=== PATIENT | female | born 1955 | race Caucasian/White ===

== ENCOUNTER 2022-03-22 12:47 | Day surgery (SDC) | payer BC ==
[2022-03-18 15:18] LABS: SARS-CoV-2 Antigen Rapid Res Negative (Negative)
[2022-03-22] MEDS ORDERED: TRYPAN BLUE 0.5 ML SYR OPTH ONE (13:09)
[2022-03-22] MEDS ORDERED: POVIDONE-IODINE 5% EYE DROPS ONE (13:09)
[2022-03-22] MEDS ORDERED: MOXIFLOXACIN HCL 10 DROPS/ML **OR USE OPTH ONE (13:10)
[2022-03-22] MEDS ORDERED: NA CHLORIDE 0.9% 500 ML ONE (13:12)
[2022-03-22] MEDS ORDERED: PHENYLEPHRINE 10% OPTH 5ML OPTH ONE (13:15)
[2022-03-22] MEDS ORDERED: LIDOCAINE HCL/PF 3.5% OPTH GEL ONE (13:21)
[2022-03-22] MEDS ORDERED: TETRACAINE HCL 0.5% 4ML OPTH ONE ×2 (13:27→13:32)
[2022-03-22] MEDS ORDERED: CYCLOPENTOLATE 1% OPTH 2 ML ONE (13:32)
[2022-03-22] MEDS ORDERED: DUOVISC 1 KIT OPTH ONE (13:38)
[2022-03-22] MEDS ORDERED: LIDOCAINE 1% MPF 2 ML AMPULE ONE (13:50)
[2022-03-22] MEDS: BALANCED SALT IRRIG PLAIN 500 ML IRR ONE ×2 (14:05→14:36)
[2022-03-22] MEDS: EPINEPHRINE/PF 1 MG/ML AMP ONE ×2 (14:06→14:36)
[2022-03-22] MEDS: DUOVISC 1 KIT OPTH ONE ×2 (14:07→14:36)
[2022-03-22] MEDS ORDERED: MIDAZOLAM HCL 2 MG/2 ML INJ ONE (14:20)
[2022-03-22] MEDS ORDERED: FENTANYL CITR 100 MCG/2 ML ONE (14:36)
[2022-03-22 16:05] VITALS: BP 125/86; TEMP 97.6; O2SAT 99
--- NOTE | 2022-03-22 17:11 | OP ---
Date of Procedure: 03/22/2022 Surgeon: Farhana Givens MD Anesthesiologist: Raudel Mackenzie CRNA and Stevie Santiago MD. 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 Operation Performed: Phacoemulsification with toric intraocular lens implant, right eye. Anesthesia: Per cataract surgery. Complications: None. Description Of Procedure: In day surgery, Akten gel was placed in the right eye In the operating room the patient was prepped and draped in the usual sterile fashion for ophthalmic surgery. A lid speculum was placed in the right eye. Two paracentesis sites were made superiorly and inferiorly in the limbal cornea. Preservative free lidocaine then Viscoat were placed in the anterior chamber. A keratome was used to enter the anterior chamber. A 360 degree capsulotomy was performed with utrata forceps. The lens was hydrodissected with BSS and rotated freely. The lens was removed with a stop and chop technique. 5.07 phaco CDE was used to remove the lens. Residual cortex was removed with the irrigation and aspiration. Provisc was placed in the capsular bag. A ZVO287, +20.0 at 73 degrees was placed in the capsular bag without complications. Irrigation and aspiration was used to remove residual viscoelastic. The paracentesis sites were hydrated with BSS. The wound and paracentesis sites were inspected and found to be watertight. Vigamox 0.07 cc was placed intracamerally at the end of the procedure. The eye was patched with a clear plastic shield. The patient was returned to day surgery in good condition. Comments: Discharge Instructions: Ms. Williamson is discharged to home in good condition. She is to follow up with Dr. Givens in the morning. MICHAEL/KIM Voice ID: [id number] Report ID: [id number] ANSELMO
== END 2022-03-22 15:45 | disposition home or self-care (01) ==
LOC: OR 12:47
PROVIDERS: ATTEND Ophthalmology Retina Specialist
PROC: 08RJ3JZ Replacement of Right Lens with Synthetic Substitute, Percutaneous Approach (ICD-10-PCS; principal; 2022-03-22 14:00)
DX: H25.13 Age-related nuclear cataract, bilateral (principal); H52.221 Regular astigmatism, right eye; H25.812 Combined forms of age-related cataract, left eye; E11.9 Type 2 diabetes mellitus without complications; Z20.822 Contact with and (suspected) exposure to COVID-19
CPT/HCPCS: 36415; 87811; 66984; J0171; J2250; J3010; J7040

== ENCOUNTER 2022-04-19 11:14 | Day surgery (SDC) | payer BC ==
[2022-04-16 15:48] LABS: SARS-CoV-2 Antigen Rapid Res Negative (Negative)
[2022-04-19] MEDS ORDERED: TETRACAINE HCL 0.5% 4ML OPTH ONE (11:58)
[2022-04-19] MEDS ORDERED: LIDOCAINE HCL/PF 3.5% OPTH GEL ONE (11:58)
[2022-04-19] MEDS ORDERED: NA CHLORIDE 0.9% 1,000 ML ONE (11:59)
[2022-04-19] MEDS: CYCLOPENTOLATE 1% OPTH 2 ML ONE ×3 (12:10→12:40)
[2022-04-19] MEDS: PHENYLEPHRINE 2.5% OPTH 2 ML ONE ×3 (12:10→12:40)
[2022-04-19] MEDS ORDERED: EPINEPHRINE/PF 1 MG/ML AMP ONE (13:16)
[2022-04-19] MEDS ORDERED: TOBRADEX 0.3-0.1% OPTH OINTMENT ONE (13:16)
[2022-04-19] MEDS ORDERED: BSS OPTHALMIC SOL 15 ML OPTH ONE (13:16)
[2022-04-19] MEDS ORDERED: BALANCED SALT IRRIG PLAIN 500 ML IRR ONE (13:17)
[2022-04-19] MEDS ORDERED: DUOVISC 1 KIT OPTH ONE ×2 (13:17→14:06)
[2022-04-19] MEDS ORDERED: LIDOCAINE 1% MPF 2 ML AMPULE ONE ×2 (13:18→14:37)
[2022-04-19] MEDS ORDERED: MIDAZOLAM HCL 2 MG/2 ML INJ ONE (13:27)
[2022-04-19] MEDS ORDERED: FENTANYL CITR 100 MCG/2 ML ONE (13:27)
[2022-04-19] MEDS ORDERED: POVIDONE-IODINE 5% EYE DROPS ONE (13:30)
[2022-04-19] MEDS ORDERED: MOXIFLOXACIN HCL 0.5% 3ML OPTH OPTH ONE (13:59)
[2022-04-19 15:44] VITALS: BP 138/81; TEMP 97.7; O2SAT 98
--- NOTE | 2022-04-20 01:47 | OP ---
Date of Procedure: 04/19/2022 Surgeon: Farhana Givens MD Diagnosis: Blurred vision due to DIU Toric contact lens. Procedure: Intraocular lens exchange, right eye. Anesthesia: Eleni Bustamante CRNA, monitored anesthesia care. Complications: None. Description Of Procedure: The patient was given actin gel in the eye in Day Surgery. She was then b rought into the operative room where the actin was irrigated out and the eye was prepped with alcohol as the patient is allergic to Betadine. Paracentesis sites were created superiorly and inferiorly. 1% preservative-free lidocaine was placed in the eye. This was followed by Viscoat. The eye was ma rked at 90 degree for a Toric lens. A 2.75 mm incision was made temporally. Viscoat was used on the 27-gauge needle to place Viscoat under the lens. The lens was visco dissected out with Viscoat and a flat instrument. The lens was then brought into the anterior chamber. The new lens was placed in the bag and the new lens was a GVN118+ 20.5. The old lens was bisected and removed from the anterior chamber. The new lens was aligned at 90 degrees. Irrigation and aspiration were used to remove vis coelastic. The incisions were sealed with BSS and found to be watertight. 0.07 cc of Vigamox was pl aced in the anterior chamber. Discharge Instructions: Ms. Williamson is discharged to home in good condition and is to follow up with Dr. Givens in the morning. MICHAEL/KIM Voice ID: [id number] Report ID: [id number]
== END 2022-04-19 15:30 | disposition home or self-care (01) ==
LOC: OR 11:14
PROVIDERS: ATTEND Ophthalmology Retina Specialist
PROC: 08RJ3JZ Replacement of Right Lens with Synthetic Substitute, Percutaneous Approach (ICD-10-PCS; 2022-04-19)
PROC: 08PJ3JZ Removal of Synthetic Substitute from Right Lens, Percutaneous Approach (ICD-10-PCS; principal; 2022-04-19 13:30)
DX: T85.29XA Other mechanical complication of intraocular lens, initial encounter (principal); H53.8 Other visual disturbances; H35.3132 Nonexudative age-related macular degeneration, bilateral, intermediate dry stage; E11.9 Type 2 diabetes mellitus without complications; H25.812 Combined forms of age-related cataract, left eye; Z96.1 Presence of intraocular lens; Z20.822 Contact with and (suspected) exposure to COVID-19
CPT/HCPCS: 36415; 87811; 66986; J0171; J2250; J3010; J7030

== ENCOUNTER 2022-06-21 12:02 | Day surgery (SDC) | payer BC ==
[2022-06-21] MEDS ORDERED: BSS OPTHALMIC SOL 15 ML OPTH ONE (12:25)
[2022-06-21] MEDS ORDERED: EPINEPHRINE/PF 1 MG/ML AMP ONE (12:26)
[2022-06-21] MEDS ORDERED: NA CHLORIDE 0.9% 1,000 ML ONE (12:36)
[2022-06-21] MEDS: BUPIVACAINE 0.25% PF 10 ML VIAL ONE ×3 (13:33→15:10)
[2022-06-21] MEDS: BALANCED SALT IRRIG PLAIN 500 ML IRR ONE ×4 (13:33→15:28)
[2022-06-21] MEDS: LIDOCAINE 2% MPF 5 ML VIAL ONE ×3 (13:33→15:10)
[2022-06-21] MEDS: DUOVISC 1 KIT OPTH ONE ×3 (13:34→15:33)
[2022-06-21] MEDS: MOXIFLOXACIN HCL 10 DROPS/ML **OR USE OPTH ONE ×3 (13:35→15:38)
[2022-06-21] MEDS: CYCLOPENTOLATE 1% OPTH 2 ML ONE ×3 (14:20→14:30)
[2022-06-21] MEDS: PHENYLEPHRINE 10% OPTH 5ML ONE ×3 (14:20→14:30)
[2022-06-21] MEDS ORDERED: LIDOCAINE 2% MPF 5 ML VIAL ONE (14:42)
[2022-06-21] MEDS ORDERED: propofoL 200 MG/20 ML VIAL IV ONE (14:42)
[2022-06-21] MEDS ORDERED: LIDOCAINE 2% INJ, MPF 2 ML 0 ML ONE (15:16)
[2022-06-21] MEDS ORDERED: TETRACAINE HCL 0.5% 4ML OPTH ONE (15:16)
[2022-06-21] MEDS ORDERED: LIDOCAINE 1% MPF 5 ML VIAL ONE (15:16)
[2022-06-21] MEDS ORDERED: LIDOCAINE 1% MPF 2 ML AMPULE ONE (15:20)
[2022-06-21 17:13] VITALS: BP 124/75; TEMP 97.6; O2SAT 100
--- NOTE | 2022-06-22 02:37 | OP ---
Date of Procedure: 06/21/2022 Surgeon: Farhana Givens MD Anesthesiologist: Raudel Galan CRNA Preoperative Diagnosis: Nuclear sclerotic cataract OS (left eye). Operation Performed: Phacoemulsification with intraocular lens implant, left eye. Anesthesia: Per cataract surgery Complications: None. Description Of Procedure: In the operating room, the patient was prepped with Betadine and draped. A conjunctival incision was made in the inferior nasal quadrant with Andi scissors. A sub-Tenon block consisting of a 1:1 mixture of 2% Xylocaine and 0.25% bupivacaine was placed through the conjunctival incision with a blunt cannula. A Honan balloon was placed over the eye for two minutes. The patient was prepped and draped in the usual sterile fashion for ophthalmic surgery. A lid speculum was placed in the left eye. Two paracentesis sites were made superiorly and inferiorly in the limbal cornea. Preservative free lidocaine and Viscoat were placed in the anterior chamber. A keratome was used to enter the anterior chamber. A 360 degree capsulotomy was performed with a utrata forceps. The lens was hydrodissected with BSS and rotated freely. The lens was removed with a chop technique. Residual cortex was removed with the irrigation and aspiration. A DCB00 +21.0 lens was placed in the capsular bag without complications. Irrigation and aspiration was used to remove residual viscoelastic. The paracentesis sites were hydrated with BSS. The wound and paracentesis sites were inspected and found to be watertight. Vigamox 0.07 cc was placed intracamerally at the end of the procedure. The eye was patched with a soft cotton patch and a clear shield. The patient was returned to day surgery in good condition. Comments: Discharge Instructions: Ms. Williamson is discharged to home in good condition. She is to follow up with Dr. Givens in the morning. MICHAEL/KIM Voice ID: [id number] Report ID: [id number] ANSELMO
== END 2022-06-21 16:28 | disposition home or self-care (01) ==
LOC: OR 12:02
PROVIDERS: ADMIT Ophthalmology Retina Specialist; ATTEND Ophthalmology Retina Specialist
PROC: 08RK3JZ Replacement of Left Lens with Synthetic Substitute, Percutaneous Approach (ICD-10-PCS; principal; 2022-06-21 13:30)
DX: H25.12 Age-related nuclear cataract, left eye (principal); Z88.0 Allergy status to penicillin; Z88.2 Allergy status to sulfonamides; Z88.7 Allergy status to serum and vaccine; E11.9 Type 2 diabetes mellitus without complications
CPT/HCPCS: 66984; J2704; J0171; J2001 ×2; J7030